=== PATIENT | male | born 1970 | race Caucasian/White ===

== ENCOUNTER 2019-02-22 07:04 | Emergency (ER) | payer SELFPAY ==
[2019-02-22] MEDS ORDERED: Ketorolac 60 MG/2 ML SDV IM ONE (07:17)
--- NOTE | 2019-02-22 07:19 | EDM.PDOC ---
ED HPI GENERAL MEDICAL PROBLEM - General Chief Complaint: Back Pain or Injury Stated Complaint: LOW BACK PAIN Time Seen by Provider: 02/22/19 07:19 Source of Information: Reports: Patient - History of Present Illness INITIAL COMMENTS - FREE TEXT/NARRATIVE: HISTORY AND PHYSICAL: History of present illness: [Patient with history of hypertension and low back pain has had previous DANITZA was brushing his teeth this morning coughed developed 8 out of 10 back pain radiating down his right leg to the level of the knee no fever nausea vomiting chills sweats no bowel or urine symptoms no footdrop or saddle anesthesia no chest pain headache dizziness or palpitation] Review of systems: As per history of present illness and below otherwise all systems reviewed and negative. Past medical history: As per history of present illness and as reviewed below otherwise noncontributory. Surgical history: As per history of present illness and as reviewed below otherwise noncontributory. Social history: No reported history of drug or alcohol abuse. Family history: As per history of present illness and as reviewed below otherwise noncontributory. Physical exam: HEENT: Atraumatic, normocephalic, pupils reactive, negative for conjunctival pallor or scleral icterus, mucous membranes moist, throat clear, neck supple, nontender, trachea midline. Lungs: Clear to auscultation, breath sounds equal bilaterally, chest nontender. Heart: S1S2, regular, negative for clicks, rubs, or JVD. Abdomen: Soft, nondistended, nontender. Negative for masses or hepatosplenomegaly. Negative for costovertebral tenderness. Pelvis: Stable nontender. Genitourinary: Deferred. Rectal: Deferred. Extremities: Atraumatic, negative for cords or calf pain. Neurovascular unremarkable. Straight leg raise to 30 does increase pain but pain stays at the level of the knee Neuro: Awake, alert, oriented. Cranial nerves II through XII unremarkable. Cerebellum unremarkable. Motor and sensory unremarkable throughout. Exam nonfocal. No footdrop or saddle anesthesia Diagnostics: [Patient declined lab and imaging outside of lumbar spine] Therapeutics: [Patient noncompliant with blood pressure medication, hasn't taken in the last year prescribed Lamisil lisinopril 20 mg by mouth daily his former blood pressure medication Cataflam Flexeril Noradol Medrol Dosepak Toradol 60 IM Impression: [ hypertension uncontrolled Medication noncompliance Muscle spasm , right sciatic distribution pain ] Definitive disposition and diagnosis as appropriate pending reevaluation and review of above. Bilateral Lower Back Pain Score (Numeric/FACES): 10 - Related Data Allergies Allergy/AdvReac Type Severity Reaction Status Date / Time No Known Allergies Allergy Verified 02/22/19 07:22 Home Meds: Home Meds . [No Known Home Meds] 02/22/19 [History] ED ROS GENERAL - Review of Systems Review Of Systems: See Below ED EXAM, GENERAL - Physical Exam Exam: See Below Course - Vital Signs Last Recorded V/S: Last Vital Signs Temp 97.7 F 02/22/19 07:23 Pulse 72 02/22/19 08:13 Resp 18 02/22/19 08:13 BP 198/128 H 02/22/19 08:13 Pulse Ox 97 02/22/19 08:13 - Orders/Labs/Meds Meds: Medications Discontinued Medications Generic Name Dose Route Start Last Admin Trade Name Freq PRN Reason Stop Dose Admin Ketorolac Tromethamine 60 mg 02/22/19 07:17 02/22/19 07:40 Toradol IM 02/22/19 07:18 60 mg ONETIME ONE Administration Departure - Departure Time of Disposition: 08:27 Disposition: Home, Self-Care 01 Condition: Good Clinical Impression: Low back pain - Discharge Information Referrals: PCP,None [Primary Care Provider] - Forms: ED Department Discharge Additional Instructions: Medication as prescribed 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 This information is to outline your options for follow-up care. We provide all patients seen in our emergency department with a follow-up referral. The need for follow-up, as well as the timing and circumstances, are variable depending upon the specifics of your emergency department visit. If you don't have a primary care physician on staff, we will provide you with a referral. We always advise you to contact your personal physician following an emergency department visit to inform them of the circumstance of the visit and for follow-up with them and/or the need for any referrals to a consulting specialist. The emergency department will also refer you to a specialist when appropriate. This referral assures that you have the opportunity for follow-up care with a specialist. All of these measure are taken in an effort to provide you with optimal care, which includes your follow-up. Under all circumstances we always encourage you to contact your private physician who remains a resource for coordinating your care. When calling for follow-up care, please make the office aware that this follow-up is from your recent emergency room visit. If for any reason you are refused follow-up, please contact the [facility] emergency department at and asked to speak to the emergency department charge nurse.
--- NOTE | 2019-02-22 07:54 | CR ---
INDICATION: Back pain TECHNIQUE: Lumbar spine 3 view COMPARISON: None FINDINGS: Bones: Alignment is normal. No fractures or significant bone lesions. Small anterior endplate osteophytes are present at multiple levels. Joints: Disc spaces and facets are unremarkable. Soft tissues: Unremarkable. IMPRESSION: Unremarkable lumbar spine. No acute or specific finding to explain pain. Dictated by Chris Eason MD @ Feb 22 2019 7:51AM Signed by Dr. Chris Eason @ Feb 22 2019 7:52AM
== END 2019-02-22 08:38 | disposition home or self-care (01) ==
LOC: MW.ED 07:04
DX: M54.41 Lumbago with sciatica, right side (principal); M62.838 Other muscle spasm; I10 Essential (primary) hypertension; Z91.19 Patient's noncompliance with other medical treatment and regimen
CPT/HCPCS: 72100; 96372; 99283; J1885

== ENCOUNTER 2021-07-04 08:23 | Emergency (ER) | payer OTHER ==
[2021-07-04] MEDS ORDERED: Cyclobenzaprine 10 MG Tab PO ONE (08:55)
[2021-07-04] MEDS ORDERED: Ketorolac 60 MG/2 ML SDV IM ONE (08:55)
--- NOTE | 2021-07-04 09:01 | EDM.PDOC ---
ED HPI GENERAL MEDICAL PROBLEM - General Chief Complaint: Back Pain or Injury Stated Complaint: LOWER BACK MUSCLE SPASM/PAIN Time Seen by Provider: 07/04/21 08:25 Source of Information: Reports: Patient History Limitations: Reports: No Limitations - History of Present Illness INITIAL COMMENTS - FREE TEXT/NARRATIVE: Patient is a 50-year-old male presents today for low back pain. Patient states that he was bending over to worsen the pain started. Patient states that he had no direct injuries to the back. The pain does radiate down his leg. He is heating pad and ice at home without relief. He denies any urinary incontinence saddle anesthesia or leg weakness or numbness. He had similar pains about 2 years ago. Has had multiple work-ups on his back and has no frontal structural damage. lower back Pain Score (Numeric/FACES): 10 - Related Data Allergies Allergy/AdvReac Type Severity Reaction Status Date / Time No Known Allergies Allergy Verified 07/04/21 08:40 Home Meds: Home Meds . [No Known Home Meds] 02/22/19 [History] Past Medical History HEENT History: Reports: None Cardiovascular History: Reports: Hypertension Respiratory History: Reports: None Gastrointestinal History: Reports: None Genitourinary History: Reports: None Musculoskeletal History: Reports: None Neurological History: Reports: None Psychiatric History: Reports: None Endocrine/Metabolic History: Reports: None Hematologic History: Reports: None Immunologic History: Reports: None Oncologic (Cancer) History: Reports: None Dermatologic History: Reports: None - Infectious Disease History Infectious Disease History: Reports: Chicken Pox - Past Surgical History Head Surgeries/Procedures: Reports: None Social & Family History - Family History Family Medical History: No Pertinent Family History - Tobacco Use Tobacco Use Status *Q: Never Tobacco User Second Hand Smoke Exposure: No - Caffeine Use Caffeine Use: Reports: None - Recreational Drug Use Recreational Drug Use: No ED ROS GENERAL - Review of Systems Review Of Systems: See Below Constitutional: Reports: No Symptoms HEENT: Reports: No Symptoms Respiratory: Reports: No Symptoms Cardiovascular: Reports: No Symptoms Endocrine: Reports: No Symptoms GI/Abdominal: Reports: No Symptoms : Reports: No Symptoms Musculoskeletal: Reports: Back Pain Skin: Reports: No Symptoms Neurological: Reports: No Symptoms Psychiatric: Reports: No Symptoms Hematologic/Lymphatic: Reports: No Symptoms Immunologic: Reports: No Symptoms ED EXAM,LOWER BACK PAIN/INJURY - Physical Exam Exam: See Below Exam Limited By: No Limitations General Appearance: Alert, WD/WN, No Apparent Distress Eye Exam: Bilateral Eye: EOMI, PERRL Head: Atraumatic, Normocephalic Neck: Normal Inspection, Supple, Non-Tender Respiratory/Chest: No Respiratory Distress, Lungs Clear, Normal Breath Sounds Cardiovascular: Normal Peripheral Pulses, Regular Rate, Rhythm GI/Abdominal: Normal Bowel Sounds, Soft, Non-Tender Back Exam: Normal Inspection, Paraspinal Tenderness. No: Full Range of Motion, Vertebral Tenderness Extremities: Normal Inspection Neurological: Alert, Normal Mood/Affect, Oriented x 3 Course - Vital Signs Last Recorded V/S: Last Vital Signs Temp 97.3 F 07/04/21 08:38 Pulse 124 H 07/04/21 08:38 Resp 18 07/04/21 08:38 BP 170/116 H 07/04/21 08:38 Pulse Ox 96 07/04/21 08:38 - Orders/Labs/Meds Meds: Medications Discontinued Medications Generic Name Dose Route Start Last Admin Trade Name Gus PRN Reason Stop Dose Admin Cyclobenzaprine HCl 10 mg 07/04/21 08:55 07/04/21 09:03 Cyclobenzaprine 10 Mg Tab PO 07/04/21 08:56 10 mg ONETIME ONE Administration Ketorolac Tromethamine 60 mg 07/04/21 08:55 07/04/21 09:03 Ketorolac 60 Mg/2 Ml Sdv IM 07/04/21 08:56 60 mg ONETIME ONE Administration - Re-Assessments/Exams Free Text/Narrative Re-Assessment/Exam: 07/04/21 09:47 Patient pain is improved patient will be discharged home. Departure - Departure Time of Disposition: 09:47 Disposition: Home, Self-Care 01 Condition: Good Clinical Impression: Lumbago - Discharge Information *PRESCRIPTION DRUG MONITORING PROGRAM REVIEWED*: Not Applicable *COPY OF PRESCRIPTION DRUG MONITORING REPORT IN PATIENT EDENILSON: Not Applicable Instructions: Acute Back Pain, Adult Referrals: PCP,None [Primary Care Provider] - Forms: ED Department Discharge Additional Instructions: The following information is given to patients seen in the emergency department who are being discharged to home. This information is to outline your options for follow-up care. We provide all patients seen in our emergency department with a follow-up referral. The need for follow-up, as well as the timing and circumstances, are variable depending upon the specifics of your emergency department visit. If you don't have a primary care physician on staff, we will provide you with a referral. We always advise you to contact your personal physician following an emergency department visit to inform them of the circumstance of the visit and for follow-up with them and/or the need for any referrals to a consulting specialist. The emergency department will also refer you to a specialist when appropriate. This referral assures that you have the opportunity for follow-up care with a specialist. All of these measure are taken in an effort to provide you with optimal care, which includes your follow-up. Under all circumstances we always encourage you to contact your private physician who remains a resource for coordinating your care. When calling for follow-up care, please make the office aware that this follow-up is from your recent emergency room visit. If for any reason you are refused follow-up, please contact the [facility] Emergency Department at and asked to speak to the emergency department charge nurse. Please follow up with your primary care physician. If you do not have a primary care physician, see below: [facility] [address] [place] [address] [id number] [address] [id number] You were seen today for low back pain most likely muscle skeletal pain. You were given muscle relaxant here to help improve the pain. We will send you home with a prescription that we recommend you take as needed for pain. Recommend you try take Motrin or Tylenol for the pain initially. If you have any other concerning signs or symptoms please feel free to return to the ED otherwise follow-up with your primary care physician. Sepsis Event Note (ED) - Evaluation Sepsis Screening Result: No Definite Risk - Focused Exam Vital Signs: Vital Signs Temp Pulse Resp BP Pulse Ox 07/04/21 08:38 97.3 F 124 H 18 170/116 H 96 - Assessment/Plan Plan: Patient is a 50-year-old male who presents today for low back pain. Patient pain is mostly muscle skeletal. Will provide pain control and reassess.
== END 2021-07-04 09:58 | disposition home or self-care (01) ==
LOC: MW.ED 08:23
DX: M54.5 Low back pain (principal); I10 Essential (primary) hypertension; X50.0XXA Overexertion from strenuous movement or load, initial encounter
CPT/HCPCS: 96372; 99283; A9270; J1885